=== PATIENT | female | born 1970 | race Hispanic/Latino ===

== ENCOUNTER 2017-10-20 09:05 | Outpatient (CLI) | payer OTHER | END 2017-10-20 09:06 | disposition home or self-care (01) | LOC: BICMAMMO 09:05 | PROVIDERS: ATTEND Obstetrics & Gynecology | DX: Z12.31 Encounter for screening mammogram for malignant neoplasm of breast (principal) | CPT/HCPCS: 77063; 77067 ==

== ENCOUNTER 2020-12-25 11:04 | Outpatient (CLI) | payer OTHER | END 2020-12-25 11:05 | disposition home or self-care (01) | LOC: BICMAMMO 11:04 | PROVIDERS: ATTEND Physician Assistant | DX: Z12.31 Encounter for screening mammogram for malignant neoplasm of breast (principal) | CPT/HCPCS: 77063; 77067 ==

== ENCOUNTER 2022-08-26 08:46 | Outpatient (CLI) | payer BC | END 2022-08-26 08:47 | disposition home or self-care (01) | LOC: BICMAMMO 08:46 | PROVIDERS: ATTEND Family Medicine | DX: Z12.31 Encounter for screening mammogram for malignant neoplasm of breast (principal) | CPT/HCPCS: 77063; 77067 ==

== ENCOUNTER 2025-01-24 11:24 | Outpatient (CLI) | payer BC ==
[2025-01-24 12:57] LABS: #Basophils 0.04 10x3/uL (0.0-0.2); #Eosinophils 0.19 10x3/uL (0.0-0.7); #Monocytes 0.57 10x3/uL (0.11-0.59); #Neutrophils 3.85 10x3/uL (1.40-6.50); %Basophils 0.5 % (0.0-1.0); %Eosinophils 2.4 % (0.0-10.0); %Lymphocytes 39.8 % (21.0-51.0); %Monocytes 7.3 % (0.0-10.0); %Neutrophils 49.6 % (42.0-75.0); Hematocrit 43.9 % (36.0-47.0); Hemoglobin 14.3 g/dL (12.0-16.0); Mean Corpuscular Hemoglobin 30.5 pg (27.0-31.0); Mean Corpuscular Volume 93.6 fL (78.0-98.0); Platelet Count 255 10x3/uL (130-400); Red Blood Cell (RBC) Count 4.69 mill/uL (4.20-5.40); White Blood Cell (WBC) Count 7.78 10x3/uL (4.8-10.8)
[2025-01-24 13:17] LABS: Anion Gap 10 mmol/L (10-20); BUN (Urea Nitrogen) 22 mg/dL (9.8-20.1); Calc. Creatinine Clearance 0 mL/min (70-130); Calcium 9.5 mg/dL (7.8-10.44); Carbon Dioxide 26 mmol/L (22-29); Chloride 107 mmol/L (98-107); Glucose 162 mg/dL (70-105); Potassium 4.0 mmol/L (3.5-5.1); Sodium 139 mmol/L (136-145)
== END 2025-01-24 11:25 | disposition home or self-care (01) ==
LOC: LABBT 11:24
PROVIDERS: ATTEND Orthopaedic Surgery Hand Surgery
DX: Z01.818 Encounter for other preprocedural examination (principal); M65.331 Trigger finger, right middle finger; M65.341 Trigger finger, right ring finger
CPT/HCPCS: 80048; 85025; 93005; 93010

== ENCOUNTER 2025-01-25 10:10 | Day surgery (SDC) | payer BC ==
[2025-01-24 11:40] VITALS: BMI 42.7
[2025-01-25] MEDS ORDERED: Ondansetron PF 4 MG/2 ML Vial ONE (12:12)
[2025-01-25] MEDS ORDERED: fentaNYL PF 100 MCG/2 ML SYRINGE ONE (12:12)
[2025-01-25] MEDS ORDERED: Lidocaine 1% PF 5 ML VIAL ONE (12:12)
[2025-01-25] MEDS ORDERED: PROPOFOL 20 ML ONE (12:12)
[2025-01-25] MEDS ORDERED: CEFAZOLIN 2 GM VIAL ONE (12:37)
== END 2025-01-25 14:42 | disposition home or self-care (01) ==
LOC: SDC 10:10
PROVIDERS: ATTEND Orthopaedic Surgery Hand Surgery
DX: M65.331 Trigger finger, right middle finger (principal); M65.341 Trigger finger, right ring finger; M65.332 Trigger finger, left middle finger; E78.5 Hyperlipidemia, unspecified; E66.9 Obesity, unspecified; Z68.41 Body mass index [BMI] 40.0-44.9, adult; E11.9 Type 2 diabetes mellitus without complications; Z79.84 Long term (current) use of oral hypoglycemic drugs; Z79.85 Long-term (current) use of injectable non-insulin antidiabetic drugs; Z79.899 Other long term (current) drug therapy; Z91.048 Other nonmedicinal substance allergy status
CPT/HCPCS: A6223; J0665; J1100; J2250; J2704